=== PATIENT | male | born 1950 | race Caucasian/White ===

== ENCOUNTER 2020-12-03 10:44 | Inpatient (IN) | payer MEDICARE, OTHER ==
[2020-12-03] MEDS ORDERED: NITROGLYCERIN SL TABS 0.4 MG TAB SUBLINGUAL PRN (11:03)
--- NOTE | 2020-12-03 11:03 | ED ---
General Adult HPI - General Chief complaint: Chest Pain Stated complaint: chest pain Time Seen by Provider: 12/03/20 10:51 Source: patient Mode of arrival: ambulatory Limitations: no limitations - History of Present Illness Initial comments: Dictation was produced using 5by dictation software. please excuse any grammatical, word or spelling errors. Chief Complaint: 70-year-old male presents to the emergency department for chest pain. History of Present Illness: 70-year-old male he initially presented [facility] earlier today for chest pain states he was a pressure-like sensation to his anterior chest. Patient has history of coronary artery stent. His last stent was placed in 1999. There was also last time he had a cardiac catheterization. His skilled nursing case manager Dr. Hinojosa. Patient requested to come to our hospital from [facility] however he refused an ambulance instead signed out AGAINST MEDICAL ADVICE to drive here via private vehicle to our facility. Patient states that he was given nitroglycerin with improvement of symptoms. Posterior reports that he had a belching episode that after that his symptoms resolved. Patient has any chest pain at this time. No shortness of breath. He did arrive to our emergency department with transfer documentation. Labs were reviewed. He had normal labs, non-concerning EKG and negative troponin. The ROS documented in this emergency department record has been reviewed and confirmed by me. Those systems with pertinent positive or negative responses have been documented in the HPI. All other systems are other negative and/or noncontributory. PHYSICAL EXAM: General Impression: Alert and oriented x3, not in acute distress HEENT: Normocephalic atraumatic, extra-ocular movements intact, pupils equal and reactive to light bilaterally, mucous membranes moist. Cardiovascular: Heart regular rate and rhythm Chest: Able to complete full sentences, no retractions, no tachypnea Abdomen: abdomen soft, non-tender, non-distended, no organomegaly Musculoskeletal: Pulses present and equal in all extremities, no peripheral edema Motor: no focal deficits noted Neurological: CN II-XII grossly intact, no focal motor or sensory deficits noted Skin: Intact with no visualized rashes Psych: Normal affect and mood ED course: 70-year-old male from [facility] presents to the emergency department for atypical chest pain with typical features. Signs upon arrival are within acceptable limits. EKG does not show any signs of ischemia or infarction. He does have a right bundle branch block. No old EKG for comparison. Transfer documentation from [facility] was reviewed. His labs look benign. His troponin was negative. X-ray showed possible infiltrate in the lung devries however patient does not have any respiratory symptoms cough or shortness of breath. Patient is well-appearing at bedside. Denies any symptoms of ACS. No chest pain or shortness of breath currently. Patient be admitted to [facility] hospitalist group under Dr. mathew. EKG interpretation: Ventricular rate 107, sinus tachycardia, right bundle branch block,. 172, QRS 154, QTC 517. No VA prolongation,, no ST or T-wave changes noted. Overall this EKG is nonspecific. - Related Data Home Medications Medication Instructions Recorded Confirmed Aspirin 81 mg PO DAILY 01/07/14 06/16/18 Benazepril HCl 10 mg PO DAILY 01/07/14 06/16/18 Famotidine 20 mg PO DAILY 01/07/14 06/16/18 Folic Acid 1 mg PO DAILY 01/07/14 06/16/18 Gabapentin [Neurontin] 300 mg PO TID 01/07/14 06/16/18 HYDROmorphone HCL [Dilaudid] 8 mg PO Q6HR PRN 01/07/14 06/16/18 Isosorbide Mononitrate [Imdur] 30 mg PO DAILY 01/07/14 06/16/18 Tamsulosin HCl [Flomax] 0.4 mg PO HS 01/07/14 06/16/18 amLODIPine BESYLATE [Norvasc] 5 mg PO DAILY 01/07/14 06/16/18 predniSONE 5 tab PO BID 01/07/14 06/16/18 Doxycycline Monohydrate [Monodox] 100 mg PO BID 06/16/18 Meloxicam 15 mg PO DAILY 06/16/18 Metoprolol Succinate (ER) [Toprol 50 mg PO DAILY 06/16/18 Xl] Rosuvastatin Calcium [Crestor] 5 mg PO HS 06/16/18 Allergies Allergy/AdvReac Type Severity Reaction Status Date / Time radha G- [From [employer]] Allergy Swelling Verified 12/03/20 10:49 Review of Systems ROS Statement: Those systems with pertinent positive or pertinent negative responses have been documented in the HPI. ROS Other: All systems not noted in ROS Statement are negative. Past Medical History Past Medical History: GERD/Reflux, Hyperlipidemia, Hypertension, Osteoarthritis (OA), Prostate Disorder Additional Past Medical History / Comment(s): bad rt knee and hip to have replaced History of Any Multi-Drug Resistant Organisms: MRSA Date of last positivie culture/infection: 2011 MDRO Source:: LT ANKLE Past Surgical History: Hernia Repair, Joint Replacement Additional Past Surgical History / Comment(s): RT TKA WITH REVISION. LT ANKLE FUSION (7 TOTAL SURGERIES). UMBILICAL HERNIA. LT SHOULDER. LT KNEE SCOPE Past Anesthesia/Blood Transfusion Reactions: No Reported Reaction Past Psychological History: No Psychological Hx Reported Smoking Status: Never smoker Past Alcohol Use History: None Reported Past Drug Use History: None Reported General Exam Limitations: no limitations Course Vital Signs 12/03/20 10:46 Temperature 98.9 F Pulse Rate 101 H Respiratory 20 Rate Blood Pressure 149/91 O2 Sat by Pulse 99 Oximetry Disposition Clinical Impression: Chest pain Disposition: ADMITTED IP TO THIS HOSP Condition: Fair Referrals: None,Stated [Primary Care Provider] - 1-2 days
[2020-12-03] MEDS ORDERED: REGADENOSON 0.4 MG/5 ML SYRINGE IV PRN (12:43)
--- NOTE | 2020-12-03 13:03 | CONS ---
CONSULTATION HISTORY OF PRESENT ILLNESS: Mr. Caputo is a 70-year-old male who is followed by Dr. Hinojosa, has a known history of coronary artery disease status post stenting in 1999 who is reasonably active physically, has a history of hyperlipidemia, hypertension, as well as history of significant arthritic pain, who woke up early this morning with symptoms of chest discomfort. Because of the persistent symptoms, he went to [facility] and over there, according to him he burped with significant improvement in the symptoms. He signed himself AMA and presented to the emergency room in [facility]. He has not had any symptoms since 1999. Details of his procedure at that time are not available to me. He is reasonably active physically and only limited by his arthritic pain. He has no exertional chest pain. No dizziness. No palpitation. No clear PND, orthopnea. No peripheral edema. He has been on clindamycin because of recent tooth infection. He took one yesterday and has some abdominal discomfort and he took one at night before going to bed. He is pain free at the time of evaluation. His coronary risk factors are remarkable for hypertension, hyperlipidemia. He is nondiabetic. MEDICATION: Include prednisone 5 mg twice a day, amlodipine 5 mg daily, 5 mg daily, Pamelor, Toprol-XL 50 mg daily, meloxicam, isosorbide mononitrate 30 mg daily, Plaquenil 200 mg twice a day, Neurontin 300 mg 3 times a day, Pepcid, and Lotensin 10 mg daily. REVIEW OF SYSTEMS: RESPIRATORY system: He has some dyspnea on exertion. No recent wheezing or cough. GI system: No recent GI bleeding. No peptic ulcer disease. system: No dysuria or hematuria. Nervous system: No stroke or seizure. MUSCULOSKELETAL: Severe arthritic pain. PHYSICAL EXAMINATION: He is a 70-year-old male, alert, oriented, in no apparent distress. Blood pressure 149/90 with a heart rate in the 100s. Afebrile. HEAD: Normocephalic. Eyes sclerae anicteric. NECK: Good upstroke. No bruit. No jugular venous distention. LUNGS: Clear to auscultation. HEART: Regular rate and rhythm S1, S2. No S3. No S4 with a systolic murmur at the base. No diastolic murmur. No rub. ABDOMEN: Soft, nontender. Positive bowel sounds. No organomegaly. EXTREMITIES: Trace edema. EKG revealed sinus mechanism, rate of 107 with right bundle branch block, left axis deviation, and PACs. His troponin less than 0.012. IMPRESSION: 1. Chest discomfort, has atypical features for ischemic heart disease, probable gastrointestinal in origin related to clindamycin. 2. History of coronary artery disease status post stenting in 1999. 3. History of hypertension. 4. Hyperlipidemia. 5. Arthritis. RECOMMENDATION: From the cardiac standpoint, I will obtain serial enzymes. If there is no evidence of enzymatic changes, then I would recommend to proceed with a myocardial perfusion imaging to further evaluate his status and guide his treatment. If there is evidence of inducible ischemia, then coronary angiography will be needed. I have discussed those based findings with the patient who is in full understanding and agreement. Thank you for this consult. We will follow with you. MMNUL / IJN: [id number] /
[2020-12-03] MEDS: METOPROLOL SUCCINATE (ER) 50 MG TAB.ER.24H PO SCH (13:59)
[2020-12-03] MEDS: ISOSORBIDE MONONITRATE ER 30 MG TAB.ER.24H PO SCH (13:59)
[2020-12-03] MEDS: FAMOTIDINE 20 MG TAB PO SCH ×3 (13:59→22:48)
[2020-12-03] MEDS ORDERED: HYDROmorphone 1 MG/ML 1 ML SYRINGE IVP STA ×2 (14:07→17:17)
[2020-12-03] MEDS: CLINDAMYCIN 150 MG CAP PO SCH ×2 (17:42→21:28)
[2020-12-03] MEDS ORDERED: LACTULOSE 20 GM/30 ML CUP PO PRN (19:57)
[2020-12-03] MEDS ORDERED: HYDROmorphone 4 MG TABLET PO PRN (19:57)
[2020-12-03] MEDS: ATORVASTATIN 10 MG TAB PO SCH (21:28)
[2020-12-03] MEDS ORDERED: CLINDAMYCIN HCL 300 MG PO SCH (22:00)
--- NOTE | 2020-12-03 22:21 | P.HPIM ---
History of Present Illness This is a pleasant 70 years old male with past medical history of hypertension, hyperlipidemia, osteoarthritis, GERD, prostate cancer.he does not have a PCP but he follow up with Dr. Hinojosa after he had a heart attack in 2000 status post stent placement Patient presents because of chest pain started since 8:00 this morning about 8/10 in severity, central and nonradiating. Now is completely gone after bourbon Patient denies dyspnea or coughing. No abdominal pain, no diarrhea, no dysuria or change in frequency. No fever Patient currently on current antibiotic for his back to his infection. Denies smoking, alcohol or illicit drugs. MAPS was checked and patient was taking Dilaudid Hemodynamically stable.He was slightly tachycardic but currently heart rate is 96 BPM. Serial troponins are less than 0.01, 0.0192. Magnesium 1.7 EKG shows sinus tachycardia with PVCs. Bifascicular block, QTC 517 Patient has been evaluated by locomotive pipe fitter and start him on aspirin 81 mg with plan for stress test tomorrow Review of Systems CONSTITUTIONAL: No fever, no malaise, no fatigue. HEENT: No recent visual problems or hearing problems. Denied any sore throat. CARDIOVASCULAR: No orthopnea, PND, no palpitations, no syncope. PULMONARY: No shortness of breath, no cough, no hemoptysis. GASTROINTESTINAL: No diarrhea, no nausea, no vomiting, no abdominal pain. Normoactive bowel sounds. NEUROLOGICAL: No headaches, no weakness, no numbness. HEMATOLOGICAL: Denies any bleeding or petechiae. GENITOURINARY: Denies any burning micturition, frequency, or urgency. MUSCULOSKELETAL/RHEUMATOLOGICAL: Denies any joint pain, swelling, or any muscle pain. ENDOCRINE: Denies any polyuria or polydipsia. Past Medical History Past Medical History: GERD/Reflux, Hyperlipidemia, Hypertension, Osteoarthritis (OA), Prostate Disorder Additional Past Medical History / Comment(s): bad rt knee and hip to have replaced History of Any Multi-Drug Resistant Organisms: MRSA Date of last positivie culture/infection: 2011 MDRO Source:: LT ANKLE Past Surgical History: Hernia Repair, Joint Replacement Additional Past Surgical History / Comment(s): RT TKA WITH REVISION. LT ANKLE FUSION (7 TOTAL SURGERIES). UMBILICAL HERNIA. LT SHOULDER. LT KNEE SCOPE Past Anesthesia/Blood Transfusion Reactions: No Reported Reaction Past Psychological History: No Psychological Hx Reported Smoking Status: Never smoker Past Alcohol Use History: None Reported Past Drug Use History: None Reported Medications and Allergies Home Medications Medication Instructions Recorded Confirmed Type Famotidine 20 mg PO DAILY 01/07/14 12/03/20 History Gabapentin [Neurontin] 300 mg PO TID 01/07/14 12/03/20 History HYDROmorphone HCL [Dilaudid] 8 mg PO Q6HR 01/07/14 12/03/20 History Isosorbide Mononitrate [Imdur] 30 mg PO DAILY 01/07/14 12/03/20 History Tamsulosin HCl [Flomax] 0.4 mg PO HS 01/07/14 12/03/20 History amLODIPine BESYLATE [Norvasc] 5 mg PO DAILY 01/07/14 12/03/20 History predniSONE 5 tab PO BID 01/07/14 12/03/20 History Meloxicam 15 mg PO DAILY 06/16/18 12/03/20 History Metoprolol Succinate (ER) [Toprol 50 mg PO DAILY 06/16/18 12/03/20 History Xl] Rosuvastatin Calcium [Crestor] 5 mg PO HS 06/16/18 12/03/20 History Benazepril [Lotensin] 10 mg PO DAILY 12/03/20 12/03/20 History Clindamycin HCl 300 mg PO TID 12/03/20 12/03/20 History Hydroxychloroquine Sulfate 200 mg PO BID 12/03/20 12/03/20 History [Plaquenil] Lactulose 20 gm PO DAILY PRN 12/03/20 12/03/20 History Nortriptyline [Pamelor] 25 mg PO HS 12/03/20 12/03/20 History Allergies Allergy/AdvReac Type Severity Reaction Status Date / Time hylan G-F 20 [From [employer]] Allergy Swelling Verified 12/03/20 11:50 Physical Exam Vitals: Vital Signs Temp Pulse Resp BP Pulse Ox 12/03/20 20:41 96 18 129/89 96 12/03/20 17:44 104 H 16 116/86 97 12/03/20 14:49 117 H 18 129/107 96 12/03/20 12:40 107 H 18 144/97 98 12/03/20 10:46 98.9 F 101 H 20 149/91 99 Intake and Output 12/03/20 12/03/20 12/03/20 06:59 14:59 22:59 Other: Weight 99.79 kg -GENERAL: The patient is alert and oriented x3, not in any acute distress. obese HEENT: Pupils are round and equally reacting to light. EOMI. No scleral icterus. No conjunctival pallor. Normocephalic, atraumatic. No pharyngeal erythema. No thyromegaly. CARDIOVASCULAR: S1 and S2 present. No murmurs, rubs, or gallops. PULMONARY: Chest is clear to auscultation, no wheezing or crackles. ABDOMEN: Soft, nontender, nondistended, normoactive bowel sounds. No palpable organomegaly. MUSCULOSKELETAL: No joint swelling or deformity. EXTREMITIES: No cyanosis, clubbing, or pedal edema. NEUROLOGICAL: Gross neurological examination did not reveal any focal deficits. SKIN: No rashes. No petechiae Assessment and Plan Assessment: Chest pain, rule out cardiac causes., Please completely resolved Hypertension Hyperlipidemia History of coronary artery disease History of prostate cancer on Dilaudid at home. History of osteoarthritis Plan: This is a pleasant 70 years old male who presents with chest pain. We'll do serial troponin, cardiology consult. Check echocardiogram and continue with aspirin Stress test in the morning. Her locomotive pipe fitter Labs and medication were reviewed.. Continue same treatment. Continue with symptomatic treatment. Resume home medication. Monitor lytes and vitals. DVT and GI prophylaxis. Further recommendations depends on the clinical course of the patient DVT prophylaxis: Subcutaneous heparin GI Prophylaxis: Pepcid Prognosis is guarded
[2020-12-03] MEDS: HYDROmorphone 2 MG TAB PO PRN (22:39)
[2020-12-03] MEDS: NORTRIPTYLINE 25 MG CAP PO SCH (22:41)
[2020-12-03] MEDS: HYDROXYCHLOROQUINE SULFATE 200 MG TAB PO SCH (22:41)
[2020-12-03] MEDS: predniSONE 5 MG TAB PO SCH (22:42)
[2020-12-03] MEDS: GABAPENTIN 300 MG CAP PO SCH (22:47)
[2020-12-03] MEDS: TAMSULOSIN 0.4 MG CAP.ER.24H PO SCH (22:47)
[2020-12-04] MEDS ORDERED: AMINOPHYLLINE 500 MG/20 ML VIAL IV PRN (06:00)
[2020-12-04] MEDS ORDERED: CAFFEINE CITRATE 60 MG/3 ML VIAL IV PRN (06:00)
[2020-12-04] MEDS: HEPARIN SODIUM,PORCINE/PF 5,000 UNIT/0.5 ML SYRINGE SQ SCH ×2 (07:39→21:28)
[2020-12-04] MEDS: ISOSORBIDE MONONITRATE ER 30 MG TAB.ER.24H PO SCH (07:39)
[2020-12-04] MEDS: METOPROLOL SUCCINATE (ER) 50 MG TAB.ER.24H PO SCH (07:39)
[2020-12-04] MEDS: CLINDAMYCIN 150 MG CAP PO SCH ×3 (07:40→21:28)
[2020-12-04] MEDS: HYDROmorphone 2 MG TAB PO PRN ×3 (07:40→21:28)
[2020-12-04] MEDS: FAMOTIDINE 20 MG TAB PO SCH (07:41)
[2020-12-04] MEDS: amLODIPine 5 MG TAB PO SCH (07:41)
[2020-12-04] MEDS: lisinopriL 10 MG TAB PO SCH (07:41)
[2020-12-04] MEDS: GABAPENTIN 300 MG CAP PO SCH ×3 (07:41→21:28)
[2020-12-04] MEDS: HYDROXYCHLOROQUINE SULFATE 200 MG TAB PO SCH ×2 (07:41→21:27)
[2020-12-04] MEDS: predniSONE 5 MG TAB PO SCH ×2 (07:42→21:27)
[2020-12-04 08:23] LABS: African American GFR (CKD) >90 (>60 ml/min/1.73 sqM); Anion Gap 8 mmol/L; Blood Urea Nitrogen 12 mg/dL (9-20); Calcium 9.1 mg/dL (8.4-10.2); Carbon Dioxide 28 mmol/L (22-30); Chloride 101 mmol/L (98-107); Glucose 99 mg/dL (74-99); Non-African American GFR(CKD) >90 (>60 ml/min/1.73 sqM); Potassium 4.3 mmol/L (3.5-5.1); Sodium 137 mmol/L (137-145)
[2020-12-04] MEDS ORDERED: ASPIRIN 325 MG TAB PO SCH (09:00)
[2020-12-04] MEDS ORDERED: ASPIRIN 81 MG PO SCH (09:00)
--- NOTE | 2020-12-04 10:25 | P.PN ---
Subjective This is a pleasant 70-year-old male past medical history significant for coronary artery disease status post PCI to the circumflex artery in 1999, hypertension, dyslipidemia, arthritis and obesity. He follows in the office with Dr. Hinojosa. He is seen and examined resting comfortably lying flat in no acute distress. He has had no further symptoms of chest discomfort or pressure. He denies shortness of breath, dizziness or palpitations. Telemetry tracings have been unremarkable. Blood pressure 160/107 heart rate 117 afebrile maintaining oxygen saturation on room air. Laboratory data reviewed, sodium 137, potassium 4.3, creatinine 0.64, magnesium 1.7 and cardiac enzymes negative 3. Preliminary bedside echocardiogram reviewed revealing severe LV global hypokinesia with impaired LV systolic function. GENERAL: Well-appearing, well-nourished and in no acute distress. NECK: Supple without JVD or thyromegaly. LUNGS: Breath sounds clear to auscultation bilaterally. Respiration equal and unlabored. No wheezes, rales or rhonchi. HEART: Regular rate and rhythm with soft systolic ejection murmur at the base, no rubs or gallops. S1 and S2 heard. EXTREMITIES: Normal range of motion, no edema. No clubbing or cyanosis. Peripheral pulses intact. ASSESSMENT Chest pain Coronary artery disease status post PCI of the circumflex artery in 1999 Hypertension Dyslipidemia Arthritis Obesity, BMI 31 PLAN Proceed with Lexiscan stress test to asses for reversibility. If there is no reversibility he will require catheterization, if normal he can be discharged home to follow up with Dr. Hinojosa in the office next week. Continue lisinopril and toprol as previously ordered. Nurse Practitioner note has been reviewed, I agree with a documented findings and plan of care. Patient was seen and examined. Objective - Vital Signs Vital signs: Vital Signs Temp 98.5 F 12/04/20 07:35 Pulse 108 H 12/04/20 08:00 Resp 18 12/04/20 07:35 BP 160/107 12/04/20 07:35 Pulse Ox 99 12/04/20 07:35 Intake & Output 12/03/20 12/04/20 12/04/20 18:59 06:59 18:59 Intake Total 10 Balance 10 Weight 99.79 kg 99.79 kg Intake: Oral 10 - Labs CBC & Chem 7: 12/04/20 07:30 Labs: Abnormal Lab Results - Last 24 Hours (Table) 12/04/20 Range/Units 07:30 Creatinine 0.64 L (0.66-1.25) mg/dL
--- NOTE | 2020-12-04 12:36 | ECHOF ---
Referral Reason:cad MEASUREMENTS -------- HEIGHT: 177.8 cm WEIGHT: 99.8 kg BP: 138/78 RVIDd: 3.5 cm (< 3.3) IVSd: 1.5 cm (0.6 - 1.1) LVIDd: 6.1 cm (3.9 - 5.3) LVPWd: 1.5 cm (0.6 - 1.1) IVSs: 2.1 cm LVIDs: 4.4 cm LVPWs: 1.9 cm LA Diam: 3.9 cm (2.7 - 3.8) LAESV Index (A-L): 30.73 ml/m Ao Diam: 4.3 cm (2.0 - 3.7) AV Cusp: 2.5 cm (1.5 - 2.6) MV EXCURSION: 16.594 mm (> 18.000) MV EF SLOPE: 97 mm/s (70 - 150) EPSS: 2.3 cm MV E Colt: 0.67 m/s MV DecT: 153 ms MV A Colt: 0.97 m/s MV E/A Ratio: 0.70 AR PHT: 1094 ms RAP: 15.00 mmHg RVSP: 40.88 mmHg FINDINGS -------- Sinus rhythm. This was a technically good study. The left ventricle is mildly dilated. There is moderate concentric left ventricular hypertrophy. Overall left ventricular systolic function is moderate-severely impaired with, an EF between 30 - 35 %. The right ventricle is mildly enlarged. LA is midly dilated 29-33ml/m2. The right atrium is normal in size. Interatrial and interventricular septum intact. The aortic valve is trileaflet and appears structurally normal. There is mild aortic valve sclerosi s. Mild mitral regurgitation is present. Mild tricuspid regurgitation present. There is mild pulmonary hypertension. The right ventricular systolic pressure, as measured by Doppler, is 40.88mmHg. Trace/mild (physiologic) pulmonic regurgitation. The aortic root is dilated measuring 4.3cm. Normal inferior vena cava with less than 50% inspiratory collapse consistent with estimated right atr ial pressure of 15 mmHg. There is no pericardial effusion. CONCLUSIONS -------- 1. The left ventricle is mildly dilated. 2. There is moderate concentric left ventricular hypertrophy. 3. Overall left ventricular systolic function is moderate-severely impaired with, an EF between 30 - 35 %. 4. The right ventricle is mildly enlarged. 5. LA is midly dilated 29-33ml/m2. 6. The aortic valve is trileaflet and appears structurally normal. 7. There is mild aortic valve sclerosis. 8. Mild mitral regurgitation is present. 9. Mild tricuspid regurgitation present. 10. There is mild pulmonary hypertension. 11. The right ventricular systolic pressure, as measured by Doppler, is 40.88mmHg. 12. Trace/mild (physiologic) pulmonic regurgitation. 13. The aortic root is dilated measuring 4.3cm. 14. Normal inferior vena cava with less than 50% inspiratory collapse consistent with estimated right atrial pressure of 15 mmHg. 15. There is no pericardial effusion. LINE CAMERA OPERATOR: Maddie Hickman RDCS
--- NOTE | 2020-12-04 12:45 | EST ---
EXERCISE STRESS DATE OF SERVICE: December 04, 2020 AGE: 70 SEX: M HT: @@ WT: @@ PROTOCOL: @@ STAGE: @@ DURATION OF EXERCISE: @@ HEART RATE REST: @@ BLOOD PRESSURE REST: @@ MAXIMUM HEART RATE ACHIEVED: @@ MAXIMUM BLOOD PRESSURE: @@ 85% MPHR: @@ 100% MPHR: @@ METS: @@ STRESS DATA: Heart rate 99, pressure is 136/78 mmHg. Baseline EKG showed sinus mechanism. 0.4 mg of Lexiscan given over 15 seconds per protocol. Max heart rate was 103 beats per minute and maximum pressure was 136/87 mmHg. Clinically, the patient has no symptoms and the EKG did not show any significant ST or T-wave abnormalities concerning for ischemia. CONCLUSION: 1. Nondiagnostic electrocardiogram stress testing in response to Lexiscan. 2. Please follow up on the Cardiolite portion on a separate report. MMODL / IJN: [id number] /
[2020-12-04 12:52] LABS: Chol/HDL Ratio 2.92; LDL Cholesterol,Calculated 83.8 mg/dL (0.0-131.0); VLDL Calculation 12.2 mg/dL (5.00-40.00)
--- NOTE | 2020-12-04 13:06 | NM ---
EXAMINATION TYPE: NM stress lexiscan cardiolite DATE OF EXAM: 12/04/2020 COMPARISON: NONE HISTORY: 70-year-old male with chest pain TECHNIQUE: After the intravenous administration of 10.1 mCi Tc 99m Sestamibi - Cardiolite resting SP ECT images acquired 45 minutes post injection. The patient received 0.4mg Lexiscan, 24.7 mCi Tc 99m Sestamibi - Stress images obtained [address] injection FINDINGS: Review of stress and rest SPECT images demonstrates decreased perfusion along the inferolateral wall. This becomes more pronounced towards the apex on stress images. Also, decreased perfusion along the mid to basal inferoseptal wall which also becomes more pronounced on stress images. No distinct perfu lyndsey abnormality. Gated analysis shows global hypokinesis along with superimposed lateral wall dyski nesis and an estimated left ventricular ejection fraction of 32 %. TID is abnormally elevated at 1.8 1. IMPRESSION: 1. Findings suggest ischemic cardiomyopathy with LVEF of 32%. 2. 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 3. In addition, TID if significantly elevated at 1.81. This can be seen in the setting of multivessel balanced, inducible ischemia
--- NOTE | 2020-12-04 16:19 | PN ---
PROGRESS NOTE DATE OF SERVICE: 12/04/2020 INTERVAL HISTORY: This is a 70-year-old gentleman who was admitted chest pain had abnormal stress test. Cardiology planning a cardiac catheterization. No chest pain. No palpitations. No fever. PHYSICAL EXAMINATION: Alert and oriented x3. Pulse 100, blood pressure 121/84, respirations 16, temperature 98 degrees, pulse ox 97% on room air. HEENT: Conjunctivae normal. NECK: No jugular venous distention. No carotid bruits. RESPIRATORY: Breath sounds diminished at the bases. No rhonchi, no crackles. HEART: S1 and S2, muffled. ABDOMEN: Soft, no tenderness. No masses palpable. EXTREMITIES: No edema, no swelling. NERVOUS: No focal deficits. LABS: Creatinine is normal. ASSESSMENT: 1. Chest pain possible unstable angina. 2. Abnormal stress test. 3. Hypertension. 4. Hyperlipidemia. 5. History of CAD and stent. 6. History of prostate cancer. 7. History of degenerative joint disease. RECOMMENDATIONS AND DISCUSSION: I recommend to continue current management and continue symptomatic treatment. Otherwise, I would follow the patient closely. Cardiac catheterization per Cardiology. Monitor renal function closely. Further recommendations to follow. MMODL / IJN: [id number] /
[2020-12-04] MEDS: NORTRIPTYLINE 25 MG CAP PO SCH (21:27)
[2020-12-04] MEDS: ATORVASTATIN 10 MG TAB PO SCH (21:27)
[2020-12-04] MEDS: TAMSULOSIN 0.4 MG CAP.ER.24H PO SCH (21:28)
[2020-12-04] MEDS ORDERED: SODIUM CHLORIDE 0.9% 1,000 ML in EMPTY BAG 1 BAG IV ONE (23:59)
[2020-12-05] MEDS ORDERED: ASPIRIN 81 MG PO ONE (06:00)
[2020-12-05] MEDS ORDERED: ATORVASTATIN 80 MG TAB PO ONE (06:00)
[2020-12-05] MEDS: HYDROmorphone 2 MG TAB PO PRN ×3 (06:14→20:47)
[2020-12-05] MEDS ORDERED: HEPARIN SODIUM,PORCINE 10,000 UNIT in SODIUM CHLORIDE 0.9% 1,000 ML IRRIGATION PRN (07:00)
[2020-12-05] MEDS ORDERED: HEPARIN SODIUM,PORCINE 2,500 UNIT in SODIUM CHLORIDE 0.9% 250 ML IRRIGATION PRN (07:00)
[2020-12-05] MEDS: predniSONE 5 MG TAB PO SCH ×2 (08:15→21:34)
[2020-12-05] MEDS: CLINDAMYCIN 150 MG CAP PO SCH ×3 (08:15→20:48)
[2020-12-05] MEDS: HYDROXYCHLOROQUINE SULFATE 200 MG TAB PO SCH ×2 (08:15→20:48)
[2020-12-05 09:31] LABS: Basophils # (A) 0.04 X 10*3/uL (0.00-0.10); Basophils % (A) 0.7 %; Eosinophils % (A) 3.3 %; HCT 45.4 % (39.6-50.0); HGB 14.9 g/dL (13.0-17.0); Lymphocytes % (A) 19.8 %; MCH 32.3 pg (27.0-32.0); MCHC 32.8 g/dL (32.0-37.0); MCV 98.3 fL (80.0-97.0); Mean Platelet Volume 10.6 fL (9.5-12.2); Monocytes # (A) 0.63 X 10*3/uL (0.20-1.00); Monocytes % (A) 10.4 %; Neutrophils # (A) 3.95 X 10*3/uL (1.80-7.70); Neutrophils % (A) 65.1 %; Platelet Count 153 X 10*3/uL (140-440); RBC 4.62 X 10*6/uL (4.40-5.60); RDW 13.7 % (11.5-14.5); WBC 6.06 X 10*3/uL (4.50-10.00)
[2020-12-05] MEDS: amLODIPine 5 MG TAB PO SCH (09:38)
[2020-12-05] MEDS: ISOSORBIDE MONONITRATE ER 30 MG TAB.ER.24H PO SCH (09:38)
[2020-12-05] MEDS: lisinopriL 10 MG TAB PO SCH (09:38)
[2020-12-05] MEDS: HEPARIN SODIUM,PORCINE/PF 5,000 UNIT/0.5 ML SYRINGE SQ SCH ×2 (09:39→20:49)
[2020-12-05] MEDS: GABAPENTIN 300 MG CAP PO SCH ×3 (09:39→20:49)
[2020-12-05] MEDS: METOPROLOL SUCCINATE (ER) 50 MG TAB.ER.24H PO SCH ×2 (09:39→20:49)
[2020-12-05] MEDS ORDERED: PANTOPRAZOLE 40 MG/10 ML VIAL IVP SCH (10:00)
[2020-12-05 10:24] LABS: African American GFR (CKD) 99.2 (60.0-200.0); Anion Gap 8.9 mmol/L (4.00-12.00); BUN/Creat Ratio 15.56 Ratio (12.00-20.00); Calcium 9.5 mg/dL (8.7-10.3); Carbon Dioxide 28.1 mmol/L (21.6-31.8); Non-African American GFR(CKD) 85.6 (60.0-200.0); Potassium 4.6 mmol/L (3.5-5.5)
[2020-12-05] MEDS ORDERED: fentaNYL (PF) 50 MCG/ML 2 ML AMP ONE (12:00)
[2020-12-05] MEDS ORDERED: fentaNYL (PF) 50 MCG/ML 2 ML AMP IV ONE (12:07)
[2020-12-05] MEDS ORDERED: LIDOCAINE 1% INJ 10MG/ML (20 ML MDV) SQ ONE (12:10)
[2020-12-05] MEDS: VERAPAMIL SYRINGE (5 MG/10 ML) INTRAARTER ONE ×2 (12:12→12:25)
[2020-12-05] MEDS: MIDAZOLAM 2 MG/2 ML VIAL IV ONE ×2 (12:12→12:22)
[2020-12-05] MEDS ORDERED: HEPARIN SODIUM 1,000 UN/ML (10ML VL) IV ONE ×2 (12:12)
[2020-12-05] MEDS ORDERED: HEPARIN SODIUM 1,000 UN/ML (10ML VL) ONE (12:16)
[2020-12-05] MEDS ORDERED: IOPAMIDOL-370 125ML BTL INJ ONE (12:23)
[2020-12-05] MEDS ORDERED: IV FLUID CONTINUATION 600 ML IV ONE (12:25)
[2020-12-05] MEDS ORDERED: RX INFO: IV CONTRAST WAS GIVEN 1 EACH MISC MISCELLANE PRN (12:42)
[2020-12-05] MEDS ORDERED: SODIUM CHLORIDE 0.9% 1,000 ML IV SCH (12:45)
[2020-12-05] MEDS: PANTOPRAZOLE 40 MG TABLET PO SCH (16:17)
--- NOTE | 2020-12-05 17:26 | PN ---
PROGRESS NOTE DATE OF SERVICE: 12/05/2020 INTERVAL HISTORY: This 70-year-old gentleman was admitted with chest pain, had possible unstable angina. The patient also had abdominal distention. Cardiac catheterization is being planned. No chest pain. No palpitations. No fever. PHYSICAL EXAMINATION: GENERAL: Patient is alert and oriented times three. VITAL SIGNS: Pulse 90, blood pressure 117/70, respirations 20, temperature 97.7, pulse ox 96% on room air. HEENT: Conjunctivae normal. NECK: No jugular venous distention. No carotid bruits. No lymph node enlargement. RESPIRATORY: Breath sounds diminished at the bases. No rhonchi, no crackles. HEART: S1 and S2, muffled. ABDOMEN: Soft, no tenderness. No masses palpable. EXTREMITIES: No edema, no swelling. NERVOUS: No focal deficits. LABS: WBC ntd, hemoglobin 14.8. ASSESSMENT: 1. Chest pain possible unstable angina secondary to coronary artery disease. 2. Cardiac cath today. 3. Abnormal stress test. 4. Hypertension. 5. Hyperlipidemia. 6. History of coronary artery disease with stent. 7. History of prostate cancer. 8. History of degenerative joint disease. RECOMMENDATION AND DISCUSSION: Recommend to continue current management, continue symptomatic treatment. Continue followup. Cardiac cath. Otherwise, continue to monitor and antiplatelet agents. Further recommendations to follow. MMODL / IJN: [id number] / MTDD
--- NOTE | 2020-12-05 18:21 | CC ---
CARDIAC CATHETERIZATION REPORT PROCEDURE PERFORMED: Cardiac catheterization. HISTORY OF PRESENT ILLNESS: Mr. Caputo is a 70-year-old male with known history of hypertension, history of hyperlipidemia, history of coronary artery disease status post stenting in 1999, history of severe arthritis who presented to the emergency room with symptoms of chest discomfort with no enzymatic changes. He underwent a stress test that revealed evidence of ischemic cardiomyopathy as well as a lateral wall defect with mild ashley- infarct ischemia. Because of his presentation and symptoms, recommendation was made regarding cardiac catheterization. The procedure as well as the risks and the complications were discussed with the patient who is in full understanding and agreement. PROCEDURE: Patient was brought to the lift slab operator in a fasting semi-sedated state after receiving fentanyl and Benadryl and achieving moderate conscious sedated state. Using Xylocaine anesthesia and Seldinger technique, a 6-Serbian sheath was introduced in the right radial artery. Selective right and left coronary angiography performed using 5-Serbian 3.5 bent right Mariana and 4 bent left Mariana catheter. Multiple views of the coronary artery including MX were obtained. Following that, catheter and sheath were removed. Hemostasis was obtained with deployment of a TR band. There was no immediate complication. Patient was returned to his room in stable condition. Of note, the patient received 5000 units of intravenous heparin as well as intra-arterial verapamil. FINDINGS: FLUOROSCOPY: There was severe calcification involving all the coronary arteries. LEFT MAIN: This is a short size vessel, bifurcating into left circumflex, left anterior descending artery. Left main coronary artery has no evidence of high-grade stenosis. LEFT ANTERIOR DESCENDING ARTERY: This is a large-sized vessel tapers down in the distal third, heavily calcified, gives rise to four the diagonal branches. The left anterior descending artery is diffusely disease with intimal disease throughout its course proximally. Prior to the first septal ergonomics technician there is an ulceration noted. The mid segment of the the vessel has a 60% -70% stenosis. The third diagonal branch has a long segment of stenosis up to 80%. The vessel beyond it is small in caliber. LEFT CIRCUMFLEX: This vessel is totally occluded proximally with no antegrade flow. RIGHT CORONARY ARTERY: This is a large dominant vessel bifurcating into PDA and posterolateral segment branches, dominant and heavily calcified. There is diffuse intimal disease in the proximal and mid of the RCA. The PDA has a 99% stenosis and the PLV has a 90% stenosis. IMPRESSION: 1. Heavily calcified coronary arteries. 2. Severe triple-vessel coronary artery disease with chronically occluded left circumflex. RECOMMENDATION: At this time, I will recommend to maximize his medical therapy and optimize his treatment and depending on his progress further recommendations will be made. Those findings and recommendations were discussed with the patient and his family who were in full understanding and agreement. The duration of sedation is 24 minutes. MMJONNIE / SILVANAN: [id number] /
[2020-12-05] MEDS: NORTRIPTYLINE 25 MG CAP PO SCH (20:48)
[2020-12-05] MEDS: TAMSULOSIN 0.4 MG CAP.ER.24H PO SCH (20:49)
[2020-12-05] MEDS ORDERED: ATORVASTATIN 40 MG TAB PO SCH (21:00)
[2020-12-05 22:35] VITALS: RESP 18
[2020-12-05] MEDS ORDERED: MELATONIN 5 MG TABLET PO PRN (22:47)
[2020-12-05] MEDS ORDERED: MAG HYDROX/AL HYDROX/SIMETH 30 ML CUP PO PRN (22:50)
[2020-12-05 22:59] LABS: Magnesium 1.8 mg/dL (1.6-2.3); Potassium 4.6 mmol/L (3.5-5.1)
[2020-12-06 06:38] LABS: African American GFR (CKD) >90 (>60 ml/min/1.73 sqM); Anion Gap 4 mmol/L; Blood Urea Nitrogen 16 mg/dL (9-20); Calcium 8.5 mg/dL (8.4-10.2); Carbon Dioxide 27 mmol/L (22-30); Chloride 104 mmol/L (98-107); Glucose 115 mg/dL (74-99); Non-African American GFR(CKD) >90 (>60 ml/min/1.73 sqM); Potassium 4.6 mmol/L (3.5-5.1); Sodium 135 mmol/L (137-145)
[2020-12-06] MEDS: GABAPENTIN 300 MG CAP PO SCH (07:21)
[2020-12-06 08:12] VITALS: BP 134/86; PULSE 89; TEMP 98
[2020-12-06] MEDS: lisinopriL 10 MG TAB PO SCH (08:17)
[2020-12-06] MEDS: FAMOTIDINE 20 MG TAB PO SCH (08:18)
[2020-12-06] MEDS: METOPROLOL SUCCINATE (ER) 50 MG TAB.ER.24H PO SCH (08:18)
[2020-12-06] MEDS: amLODIPine 5 MG TAB PO SCH (08:18)
[2020-12-06] MEDS: PANTOPRAZOLE 40 MG TABLET PO SCH (08:18)
[2020-12-06] MEDS: predniSONE 5 MG TAB PO SCH (08:18)
[2020-12-06] MEDS: HEPARIN SODIUM,PORCINE/PF 5,000 UNIT/0.5 ML SYRINGE SQ SCH (08:19)
[2020-12-06] MEDS: CLINDAMYCIN 150 MG CAP PO SCH (08:19)
[2020-12-06] MEDS: HYDROmorphone 2 MG TAB PO PRN (08:23)
[2020-12-06] MEDS ORDERED: ASPIRIN 81 MG PO SCH (09:00)
[2020-12-06] MEDS ORDERED: ISOSORBIDE MONONITRATE ER 60 MG TAB.ER.24H PO SCH (09:00)
--- NOTE | 2020-12-06 10:18 | P.PN ---
Subjective This is a pleasant 70-year-old male past medical history significant for coronary artery disease status post PCI to the circumflex artery in 1999, hypertension, dyslipidemia, arthritis and obesity. He follows in the office with Dr. Hinojosa. He is seen and examined resting comfortably lying flat in no acute distress. He has had no further symptoms of chest discomfort or pressure. He denies shortness of breath, dizziness or palpitations. Telemetry tracings have been unremarkable. Blood pressure 160/107 heart rate 117 afebrile maintaining oxygen saturation on room air. Laboratory data reviewed, sodium 137, potassium 4.3, creatinine 0.64, magnesium 1.7 and cardiac enzymes negative 3. Preliminary bedside echocardiogram reviewed revealing severe LV global hypokinesia with impaired LV systolic function. 12/06/2020 Patient underwent cardiac catheterization yesterday revealing heavily calcified coronary arteries with severe triple vessel CAD with chronically occluded left circumflex. Maximal medical therapy was recommended. Imdur and Lopressor were both increased. He is seen and examined sitting up in no acute distress. He has had no symptoms of chest discomfort. Breathing is stable. Blood pressure 134/86 heart rate 89 afebrile maintaining oxygen saturation on room air. Laboratory data reviewed, sodium 135, potassium 4.6, magnesium 1.8 and creatinine 0.77. Right radial access site soft, nontender with no evidence of hematoma or ecchymosis and strong distal pulses. He has a run of ventricular tachycardia last night, monomorphic GENERAL: Well-appearing, well-nourished and in no acute distress. NECK: Supple without JVD or thyromegaly. LUNGS: Breath sounds clear to auscultation bilaterally. Respiration equal and unlabored. No wheezes, rales or rhonchi. HEART: Regular rate and rhythm with soft systolic ejection murmur at the base, no rubs or gallops. S1 and S2 heard. EXTREMITIES: Normal range of motion, no edema. No clubbing or cyanosis. Peripheral pulses intact. ASSESSMENT Chest pain Coronary artery disease status post PCI of the circumflex artery in 1999 Ischemic cardiomyopathy Ventricular tachycardia Hypertension Dyslipidemia Arthritis Obesity, BMI 31 PLAN Stable for discharge on current medical regimen. Prescriptions have been sent to the pharmacy for dose increases on Imdur and Toprol. Add aldactone 25 mg daily to his regimen. Follow-up in the office with Dr. iHnojosa in one week. Nurse Practitioner note has been reviewed, I agree with a documented findings and plan of care. Patient was seen and examined. Objective - Vital Signs Vital signs: Vital Signs Temp 98.0 F 12/06/20 07:00 Pulse 89 12/06/20 07:00 Resp 18 12/06/20 07:00 BP 134/86 12/06/20 07:00 Pulse Ox 96 12/06/20 09:02 Intake & Output 12/05/20 12/06/20 12/06/20 18:59 06:59 18:59 Intake Total 400 240 Balance 400 240 Intake: IV 100 Oral 300 240 Other: Voiding Method Toilet Toilet # Voids 1 - Labs CBC & Chem 7: 12/05/20 05:53 12/06/20 05:36 Labs: Abnormal Lab Results - Last 24 Hours (Table) 12/06/20 Range/Units 05:36 Sodium 135 L (137-145) mmol/L Glucose 115 H (74-99) mg/dL
[2020-12-06] MEDS: HYDROXYCHLOROQUINE SULFATE 200 MG TAB PO SCH (10:22)
--- NOTE | 2020-12-06 15:55 | P.DS ---
Providers Date of admission: 12/04/20 15:06 Expected date of discharge: 12/06/20 Attending physician: Jason Aguirre MD Consults: 12/03/20 11:03 Consult Physician Urgent Consulting Provider: Xander Hinojosa Consult Reason/Comments: chest pain Do you want consulting provider notified?: Yes Primary care physician: Stated None Hospital Course: Final diagnosis Chest pain, possible unstable angina secondary to coronary disease Cardiac catheterization Abnormal stress test Hypertension Hyperlipidemia History of coronary artery disease with stent History of prostate cancer next line history of degenerative joint disease Full code Discharge disposition Patient is being discharged in a stable condition with guarded prognosis to home. Patient will follow-up with primary care provider in the outpatient setting upon discharge. Patient also instructed to follow-up closely with cardiology Dr. Hinojosa in one week. Total time taken is greater than 35 minutes. Hospital course This is a 70 year old male who was recently admitted with chest pain with possible unstable angina along with abdominal distention and was being closely monitored. Patient was seen and evaluated by cardiology and underwent cardiac catheterization secondary to an abnormal stress test and planning for maximum medical management and close outpatient follow-up with cardiology Dr. Meeta osuna in one week. Patient will continue on imdur, Toprol, aspirin and Aldactone upon discharge. Patient is feeling great and states he wants to go home today. Per the patient, he was following Dr. Murdock in the outpatient setting although was discharged from the practice for supposedly noncompliance of keeping appointments during the initial outbreak of the Covid pandemic . Patient has been working with [employer] to establish with an accepting physician in case management also provided resources for physicians within the area prior to discharge. Currently no reports of chest pain, shortness of breath, or palpitations. Patient is afebrile. No reports of nausea or vomiting and patient is tolerating diet. Patient will be discharged home today. On exam vital signs are stable. Cardio S1, S2 are muffled. Respiratory system shows diminished breath sounds at the bases with no wheezing or rhonchi noted. Abdomen is soft and nontender. Nervous system shows no focal deficits. Please refer to medication reconciliation sheet for a list of medications. Patient Condition at Discharge: Fair Plan - Discharge Summary Discharge Rx Participant: No New Discharge Prescriptions: New Isosorbide Mononitrate ER [Imdur] 60 mg PO DAILY #90 tab.er.24h Metoprolol Succinate (ER) [Toprol XL] 50 mg PO BID tab.er.24h Aspirin 81 mg PO DAILY 30 Days #30 chew Spironolactone [Aldactone] 25 mg PO DAILY #90 tablet Continue predniSONE 5 tab PO BID HYDROmorphone HCL [Dilaudid] 8 mg PO Q6HR Tamsulosin HCl [Flomax] 0.4 mg PO HS amLODIPine BESYLATE [Norvasc] 5 mg PO DAILY Gabapentin [Neurontin] 300 mg PO TID Famotidine 20 mg PO DAILY Meloxicam 15 mg PO DAILY Rosuvastatin Calcium [Crestor] 5 mg PO HS Nortriptyline [Pamelor] 25 mg PO HS Hydroxychloroquine Sulfate [Plaquenil] 200 mg PO BID Benazepril [Lotensin] 10 mg PO DAILY Clindamycin HCl 300 mg PO TID Lactulose 20 gm PO DAILY PRN PRN Reason: Constipation Discontinued Isosorbide Mononitrate [Imdur] 30 mg PO DAILY Metoprolol Succinate (ER) [Toprol Xl] 50 mg PO DAILY Discharge Medication List Famotidine 20 mg PO DAILY 01/07/14 [History] Gabapentin [Neurontin] 300 mg PO TID 01/07/14 [History] HYDROmorphone HCL [Dilaudid] 8 mg PO Q6HR 01/07/14 [History] Tamsulosin HCl [Flomax] 0.4 mg PO HS 01/07/14 [History] amLODIPine BESYLATE [Norvasc] 5 mg PO DAILY 01/07/14 [History] predniSONE 5 tab PO BID 01/07/14 [History] Meloxicam 15 mg PO DAILY 06/16/18 [History] Rosuvastatin Calcium [Crestor] 5 mg PO HS 06/16/18 [History] Benazepril [Lotensin] 10 mg PO DAILY 12/03/20 [History] Clindamycin HCl 300 mg PO TID 12/03/20 [History] Hydroxychloroquine Sulfate [Plaquenil] 200 mg PO BID 12/03/20 [History] Lactulose 20 gm PO DAILY PRN 12/03/20 [History] Nortriptyline [Pamelor] 25 mg PO HS 12/03/20 [History] Aspirin 81 mg PO DAILY 30 Days #30 chew 12/06/20 [Rx] Isosorbide Mononitrate ER [Imdur] 60 mg PO DAILY #90 tab.er.24h 12/06/20 [Rx] Metoprolol Succinate (ER) [Toprol XL] 50 mg PO BID tab.er.24h 12/06/20 [Rx] Spironolactone [Aldactone] 25 mg PO DAILY #90 tablet 12/06/20 [Rx] Follow up Appointment(s)/Referral(s): None,Stated [Primary Care Provider] - 1-2 days Xander Hinojosa MD [STAFF PHYSICIAN] - 1 Week (office will call you with an appointment time) Patient Instructions/Handouts: *Surgery [facility] - After Heart Catheterization - Acid Painter Instructions, Chest Pain (DC) Activity/Diet/Wound Care/Special Instructions: Activity Limited until follow-up Follow-up with cardiology outpatient Continue medications as prescribed Follow-up with primary care provider upon discharge Continue heart healthy diet Case management to provide resources for names and numbers to primary care providers that accept [employer] for patient to look into obtaining a new primary care provider and this was discussed in detail with the patient Discharge Disposition: HOME SELF-CARE
== END 2020-12-06 11:21 | disposition home or self-care (01) | DRG 287 ==
LOC: EC 10:44 → 6NMEDSUR 11:03 → OBSVTOIN 12-04 15:06
PROVIDERS: ADMIT Internal Medicine; ATTEND Internal Medicine
PROC: B2111ZZ Fluoroscopy of Multiple Coronary Arteries using Low Osmolar Contrast (ICD-10-PCS; 2020-12-05)
PROC: 4A023N7 Measurement of Cardiac Sampling and Pressure, Left Heart, Percutaneous Approach (ICD-10-PCS; principal; 2020-12-05 12:00)
DX: I25.110 Atherosclerotic heart disease of native coronary artery with unstable angina pectoris (principal); I45.2 Bifascicular block; I47.2 Ventricular tachycardia; E66.9 Obesity, unspecified; Z68.31 Body mass index [BMI] 31.0-31.9, adult; E78.5 Hyperlipidemia, unspecified; I10 Essential (primary) hypertension; I25.5 Ischemic cardiomyopathy; I25.82 Chronic total occlusion of coronary artery; M19.90 Unspecified osteoarthritis, unspecified site; Z79.1 Long term (current) use of non-steroidal anti-inflammatories (NSAID); Z79.82 Long term (current) use of aspirin; Z79.899 Other long term (current) drug therapy; Z85.46 Personal history of malignant neoplasm of prostate; Z91.19 Patient's noncompliance with other medical treatment and regimen; Z96.651 Presence of right artificial knee joint; Z98.1 Arthrodesis status; I49.3 Ventricular premature depolarization; Z86.14 Personal history of Methicillin resistant Staphylococcus aureus infection
CPT/HCPCS: 36415; 78452; 80048; 80061; 83735; 84132; 84484; 85025; 93005; 93017; 93306; 93458; 94760; 99285

== ENCOUNTER → 2021-12-13 | Outpatient (CLI) | payer MEDICARE ==
--- NOTE | 2021-12-13 16:12 | XR ---
EXAMINATION TYPE: XR ankle complete 3 views LT DATE OF EXAM: 12/13/2021 Comparison: 10/17/2011 Clinical History: 71-year-old male S91.002A Left ankle wound Findings: Previous distal fibular excision. Generalized soft tissue swelling. Previous tibiotalar joint bony an kylosis. Moderate to severe degenerative change talonavicular and subtalar joints. Posterior loose martin dies measuring up to 1.3 cm. Chronic appearing periosteal new bone formation about the distal tibia. Vascular calcifications. No well-defined focal erosive change is identified. Some residual metal frag ments related to prior orthopedic hardware at the fused tibiotalar joint. Old screw track distal thir d tibial shaft. Impression: 1. 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 2. Pronounced degenerative change talonavicular and subtalar joints. 3. Chronic appearing periosteal new bone formation about the distal tibia may be reactive change to o verlying chronic soft tissue edema or cellulitis. No discrete lytic destruction is identified.
[2021-12-13 22:26] LABS: Basophils # (A) 0.03 X 10*3/uL (0.00-0.10); Basophils % (A) 0.5 %; Eosinophils # (A) 0.04 X 10*3/uL (0.04-0.35); Eosinophils % (A) 0.6 %; HCT 47.1 % (39.6-50.0); HGB 15.6 g/dL (13.0-17.0); Immature Grans, Automated 0.3 %; Lymphocytes # (A) 1.44 X 10*3/uL (0.90-5.00); Lymphocytes % (A) 22.4 %; MCH 32.8 pg (27.0-32.0); MCHC 33.1 g/dL (32.0-37.0); MCV 99.2 fL (80.0-97.0); Mean Platelet Volume 10.5 fL (9.5-12.2); Monocytes # (A) 0.67 X 10*3/uL (0.20-1.00); Monocytes % (A) 10.4 %; NRBC Per 100 WBC 0 /100 WBCS (0.0-0.0); Neutrophils # (A) 4.23 X 10*3/uL (1.80-7.70); Neutrophils % (A) 65.8 %; Platelet Count 129 X 10*3/uL (140-440); RBC 4.75 X 10*6/uL (4.40-5.60); RDW 14.6 % (11.5-14.5); WBC 6.43 X 10*3/uL (4.50-10.00)
[2021-12-13 22:35] LABS: ALT 21 U/L (10-49); AST 20 U/L (14-35); African American GFR (CKD) 103.1 (60.0-200.0); Albumin 4.1 g/dL (3.8-4.9); Albumin/Globulin Ratio 2.18 (1.60-3.17); Alkaline Phosphatase 96 U/L (41-126); BUN/Creat Ratio 18.36 Ratio (12.00-20.00); Blood Urea Nitrogen 14.8 mg/dL (9.0-27.0); C Reactive Protein <0.30 mg/dL (0.00-0.80); Calcium 9.1 mg/dL (8.7-10.3); Carbon Dioxide 29.2 mmol/L (20.0-27.5); Chloride 101 mmol/L (96-109); Globulin 1.9 g/dL (1.6-3.3); Glucose 95 mg/dL (70-110); Potassium 4.3 mmol/L (3.5-5.5); Sodium 140 mmol/L (135-145); Total Protein 5.9 g/dL (6.2-8.2)
[2021-12-14 00:34] LABS: Erythrocyte Sedimentation Rate 3 mm/Hr (0-20)
== END | disposition home or self-care (01) ==
LOC: RADXRMAIN 15:23
PROVIDERS: ATTEND Internal Medicine Infectious Disease
DX: S91.002A Unspecified open wound, left ankle, initial encounter (principal); M19.072 Primary osteoarthritis, left ankle and foot
CPT/HCPCS: 80053; 85025; 85652; 86140